=== PATIENT | male | born 1940 | race Caucasian/White ===

== ENCOUNTER 2021-04-18 09:28 | Inpatient (IN) ==
[2021-04-18] MEDS ORDERED: Naloxone 0.4 MG/ML INJ IVP PRN (10:01)
[2021-04-18 11:02] LABS: Hematocrit 46.4 % (37.5-50.1); Hemoglobin 15.1 g/dL (12.9-16.9); Mean Corpuscular HGB Conc 32.5 g/dL (31.6-35.5); Mean Corpuscular Hemoglobin 30.1 pg (28.0-33.3); Mean Corpuscular Volume 92.6 fL (83.0-100.0); Mean Platelet Volume 10.5 fL (9.4-12.4); Platelet Count 188 K/mcL (140-400); Red Blood Count 5.01 M/mcL (4.19-5.50); Red Cell Distribution Width 12.8 % (11.5-14.5); White Blood Count 5.9 K/mcL (4.3-11.1)
[2021-04-18 11:29] LABS: BUN/Creatinine Ratio 16 (6-26); Blood Urea Nitrogen 18 mg/dL (8-23); Calcium 9.9 mg/dL (8.6-10.3); Carbon Dioxide 30 mEq/L (23-29); Chloride 102 mEq/L (98-107); Glucose 84 mg/dL (70-105); Osmolality,Calculated 289 (280-300); Potassium 3.6 mEq/L (3.5-5.1); Sodium 139 mEq/L (136-145); eGFR For African Americans > 60 (> 60); eGFR For Non-African Americans > 60 (> 60)
[2021-04-18] MEDS: NIFEdipine XL (24 HR) 30 MG TAB.ER.24 PO SCH (17:51)
[2021-04-18] MEDS: *HR* Rivaroxaban 10 MG TABLET PO SCH (17:51)
[2021-04-19] MEDS: hydroCHLOROthiazide 25 MG TABLET PO SCH (09:03)
[2021-04-19] MEDS: Metoprolol XL (24 HR) Succ 25 MG TAB.ER.24H PO SCH (09:03)
[2021-04-19] MEDS: *HR* Rivaroxaban 10 MG TABLET PO SCH (17:41)
[2021-04-19] MEDS: NIFEdipine XL (24 HR) 30 MG TAB.ER.24 PO SCH (17:41)
[2021-04-20] MEDS: Metoprolol XL (24 HR) Succ 25 MG TAB.ER.24H PO SCH (07:38)
[2021-04-20] MEDS: hydroCHLOROthiazide 25 MG TABLET PO SCH (07:38)
[2021-04-20] MEDS ORDERED: Perflutren Lipid Microsphere 1.3 ML in 0.9 % Sodium Chloride 8.7 ML IVP PRN (09:34)
[2021-04-20] MEDS ORDERED: *HR* FentaNYL (PF) 100 MCG/2 ML VIAL IVP PRN (12:34)
[2021-04-20] MEDS ORDERED: 0.9 % Sodium Chloride 500 ML IVC ONE (12:34)
[2021-04-20] MEDS: *HR* Midazolam HCl 5 MG/5 ML VIAL IVP PRN ×2 (13:13→13:15)
[2021-04-20] MEDS: *HR* Rivaroxaban 10 MG TABLET PO SCH (16:48)
[2021-04-20] MEDS: NIFEdipine XL (24 HR) 30 MG TAB.ER.24 PO SCH (17:30)
[2021-04-21 04:18] VITALS: TEMP 97.7
[2021-04-21 07:04] VITALS: BP 138/70; PULSE 47; O2SAT 98
[2021-04-21] MEDS: hydroCHLOROthiazide 25 MG TABLET PO SCH (08:18)
== END 2021-04-21 09:46 | disposition home or self-care (01) | DRG 310 ==
LOC: 2ANU
PROVIDERS: ADMIT Internal Medicine Clinical Cardiac Electrophysiology; ATTEND Internal Medicine Clinical Cardiac Electrophysiology